=== PATIENT | male | born 1960 | race African-American/Black ===

== ENCOUNTER 2022-04-14 10:10 | Emergency (ER) | payer OTHER ==
[~2022-04-14] VITALS: Ht 185.4 cm; Wt 98.0 kg
[2022-04-14] MEDS ORDERED: KETOROLAC 30MG/ML VIAL IV STA (10:53)
[2022-04-14 11:17] LABS: CLARITY URINE CLEAR (CLEAR); COLOR URINE YELLOW (YELLOW); KETONES URINE TRACE (NEGATIVE); LEUKOCYTE ESTERASE URINE 2+ (NEGATIVE); NITRITE URINE POSITIVE (NEGATIVE); OCCULT BLOOD URINE 1+ (NEGATIVE); PROTEIN URINE NEGATIVE (NEGATIVE); SPECIFIC GRAVITY URINE 1.022 (1.005-1.030); UROBILINOGEN URINE 0.2 E.U./dL (0.2-1.0)
[2022-04-14] MEDS ORDERED: CEFTRIAXONE 1 G PREMIX 50 ML IV ONE (12:15)
[2022-04-14 12:33] LABS: HEMOGLOBIN. 14.5 g/dL (14.0-18.0); MEAN CORPUSCULAR VOLUME 95.2 fL (80.0-94.0); MEAN PLATELET VOLUME 7.4 fl (7.4-10.4); PLATELET 304 x1000/uL (130-400); RED BLOOD CELL COUNT 4.52 mill/uL (4.7-6.1); RED CELL DISTRIBUTION WIDTH 13.1 % (11.6-14.6)
[2022-04-14 12:43] LABS: CHLORIDE 111 mEq/L (98-107)
[2022-04-14 13:02] LABS: PLATELET ESTIMATE NORMAL
[2022-04-14 14:30] VITALS: BP 138/74
[2022-04-14] MEDS ORDERED: MORPHINE SULFATE 4 MG/ML CPJ (NOT FOR IM USE) IV ONE (15:30)
[2022-04-14] MEDS ORDERED: KETOROLAC 15MG/ML VIAL IV ONE (15:30)
[2022-04-14] MEDS ORDERED: NAPR-681 MT (15:40)
[2022-04-14] MEDS ORDERED: CIPR-263 MT (15:40)
== END 2022-04-14 17:10 | disposition home or self-care (01) ==
LOC: ER 10:10
DX: N45.3 Epididymo-orchitis (principal)
CPT/HCPCS: 36415; 76870; 80053; 81003; 85025; 87077; 87086; 87186; 93976; 96374; 96375; 96376; 99285; J0696; J1885